=== PATIENT | female | born 1975 | race Hispanic/Latino ===

== ENCOUNTER 2019-02-08 01:44 | Inpatient (IN) | payer OTHER ==
[2019-02-08] VITALS (20 sets, daily range): BP systolic 94–217; BP diastolic 50–99
[~2019-02-08] VITALS: Ht 157.5 cm; Wt 65.8 kg
[2019-02-08] MEDS ORDERED: POTASSIUM CHLORIDE 10MEQ/100ML 100 ML IV PRN (02:00)
[2019-02-08] MEDS ORDERED: POTASSIUM CHLORIDE 10% ELIXIR 20 MEQ/15 ML UDCUP PO PRN (02:00)
[2019-02-08] MEDS ORDERED: GLUCAGON 1MG KIT 1 MG ML IM PRN ×2 (02:00→19:00)
[2019-02-08] MEDS ORDERED: CEFAZOLIN SODIUM 1 GM VIAL IVP PRN (02:00)
[2019-02-08] MEDS ORDERED: LIDOCAINE HCL-MPF 1% 2ML VIAL IV PRN ×2 (02:00)
[2019-02-08] MEDS ORDERED: POTASSIUM CHLORIDE 20MEQ/100ML 100 ML IV PRN (02:00)
[2019-02-08] MEDS ORDERED: ONDANSETRON HCL 4 MG/2 ML VIAL IVP PRN (02:00)
[2019-02-08] MEDS ORDERED: TRAMADOL HCL 50 MG TABLET PO PRN ×2 (02:00)
[2019-02-08] MEDS ORDERED: DEXTROSE 50%-WATER 50 ML DISP.SYRIN IV PRN ×2 (02:00→19:00)
--- NOTE | 2019-02-08 02:00 | NUR ---
Received patient from [facility] via EMS. Admitted to room 215. Denies pain, sob. On room Air. RSR per EKG. Oriented to room, call light, bed controls, etc. Initial assessment completed. Informed HS KEERTHI Fox of admission. Spoke with Dr Cohen's nurse Lela Sexton RN. Informed patient received Lovenox last night at 2057. State OR time has changed from 0800 to 1200. Orders to be placed.
[2019-02-08 02:51] LABS: HEMATOCRIT 39.8 % (36-48); MEAN CORPUSCULAR HEMOGLOBIN 29.9 pg (27.0-33.0); MEAN CORPUSCULAR HGB CONC 34.9 g/dL (32.0-36.0); MEAN CORPUSCULAR VOLUME 85.6 fL (79-99); PLATELET COUNT (AUTO) 270 K/uL (130-400); RED BLOOD CELL COUNT(AUTO) 4.65 MIL/uL (4.00-5.50); RED CELL DISTRIBUTION WIDTH 12.5 % (11.0-15.5); WHITE BLOOD COUNT (AUTO) 5.5 K/uL (4.8-10.8)
[2019-02-08 03:00] LABS: HEMOGLOBIN A1C 11.3 % (4.0-6.0)
[2019-02-08 03:05] LABS: ALBUMIN 3.6 g/dL (3.5-5.0); BILIRUBIN,TOTAL 0.4 mg/dL (0.2-1.0); CREATININE 0.6 mg/dL (0.5-1.5); POTASSIUM 3.9 mmol/L (3.5-5.1); TOTAL PROTEIN, SERUM 7.8 g/dL (6.0-8.3)
[2019-02-08 03:19] LABS: B-TYPE NATRIURETIC PEPTIDE 147 pg/mL (0-100)
[2019-02-08 03:27] LABS: INR 0.96 (0.85-1.15); PARTIAL THROMBOPLASTIN TIME 30.9 SEC (26.3-35.5); PROTHROMBIN TIME 10.1 SEC (9.6-11.6)
[2019-02-08] MEDS: INSULIN HUMULIN R 100 UNIT/ML 3ML SQ SCH ×3 (08:08→16:25)
[2019-02-08] MEDS ORDERED: METOPROLOL TARTRATE 25 MG TAB PO SCH (09:00)
[2019-02-08] MEDS ORDERED: AMINOCAPROIC ACID 15,000 MG in SODIUM CHLORIDE 0.9% 500ML 500 ML IV PRN (09:30)
[2019-02-08] MEDS ORDERED: EPINEPHRINE 8 MG in SODIUM CHLORIDE 0.9% 250 ML IV PRN (09:30)
[2019-02-08] MEDS ORDERED: NOREPINEPHRINE BITARTRATE 8 MG in SODIUM CHLORIDE 0.9% 250 ML IV PRN (09:30)
[2019-02-08] MEDS ORDERED: NITROGLYCERIN 50 MG/D5% WATER 1 BOT ONE (11:02)
[2019-02-08] MEDS ORDERED: HEPARIN SODIUM 1000UNIT/ML 10ML VIAL IV ONE (14:07)
[2019-02-08] MEDS ORDERED: AMINOCAPROIC ACID 250 MG/ML 20 ML VIAL IV ONE ×2 (14:07→16:47)
[2019-02-08] MEDS ORDERED: SODIUM BICARB 8.4% 50ML SYRINGE IVP ONE (14:07)
[2019-02-08] MEDS ORDERED: PHENYLEPHRINE HCL 10 MG/ML 1ML VIAL IV ONE (14:07)
[2019-02-08] MEDS ORDERED: ALBUMIN (HUMAN) 25% 50 ML IV ONE (14:07)
[2019-02-08] MEDS ORDERED: MANNITOL 25% 50ML VIAL IV ONE (14:07)
[2019-02-08] MEDS ORDERED: KETAMINE HCL 50MG/ML 10ML VIAL IJ ONE (16:46)
[2019-02-08] MEDS ORDERED: ESMOLOL HCL 10 MG/ML 10 ML VIAL ONE ×2 (16:47→20:57)
[2019-02-08] MEDS ORDERED: EPINEPHRINE 1 MG/ML AMPULE ONE (16:47)
[2019-02-08] MEDS ORDERED: LIDOCAINE PF 2% 5ML ABBOJECT ONE (16:47)
[2019-02-08] MEDS ORDERED: HEPARIN SODIUM 1000UNIT/ML 10ML VIAL ONE ×2 (16:47→17:32)
[2019-02-08] MEDS ORDERED: PROTAMINE SULFATE 10 MG/ML 25ML VIAL IV ONE (16:47)
[2019-02-08] MEDS ORDERED: NOREPINEPHRINE BITARTRATE 1 MG/1 ML ML IV ONE (16:47)
[2019-02-08] MEDS ORDERED: PROPOFOL 10 MG/ML 20ML VIAL IV ONE ×2 (16:48→20:15)
[2019-02-08] MEDS ORDERED: MIDAZOLAM HCL 1 MG/ML 2ML VIAL ONE (16:48)
[2019-02-08] MEDS ORDERED: ROCURONIUM 10MG/1ML SYR 10 MG/ML ML ONE ×2 (16:48→18:58)
[2019-02-08] MEDS ORDERED: FENTANYL CITRATE PF 50 MCG/1 ML 20ML VIAL IJ ONE (16:48)
[2019-02-08 17:32] LABS: ABG BASE EXCESS -3.5 mmol/L (-2.0-3.0); ABG HCO3 20.2 mmol/L (21.0-28.0); ABG OXYGEN SATURATION 98.3 % (95.0-99.0); ABG PCO2 32 mmHg (32-45)
[2019-02-08] MEDS ORDERED: PAPAVERINE HCL 30 MG/ML 2ML VIAL ONE (17:32)
[2019-02-08] MEDS ORDERED: OCTYL 2-CYANOACRYLATE 1 EACH TP ONE (17:32)
[2019-02-08] MEDS ORDERED: NEOMY SULF/POLYMYXIN B SULFATE 1 ML AMPUL IR ONE (17:38)
[2019-02-08] MEDS ORDERED: SODIUM BICARB 8.4% 50ML SYRINGE ONE ×3 (18:08→18:41)
[2019-02-08] MEDS ORDERED: SODIUM BICARB [NEONATAL] 4.2% 10ML SYG ONE (18:09)
[2019-02-08] MEDS ORDERED: AMIODARONE HCL 50 MG/ML 3 ML VIAL ONE ×2 (18:25→19:06)
[2019-02-08 18:29] LABS: ABG BASE EXCESS -3.8 mmol/L (-2.0-3.0); ABG HCO3 20.2 mmol/L (21.0-28.0); ABG OXYGEN SATURATION 98.6 % (95.0-99.0); ABG PCO2 34 mmHg (32-45)
[2019-02-08] MEDS ORDERED: POTASSIUM CHLORIDE 20MEQ/100ML 300 ML IV ONE (18:37)
[2019-02-08] MEDS ORDERED: SODIUM CHLORIDE 0.9% 500ML 500 ML IV SCH (18:49)
[2019-02-08] MEDS ORDERED: SODIUM CHLORIDE 0.9% 250 ML IV PRN (19:00)
[2019-02-08] MEDS ORDERED: SODIUM CHLORIDE 0.9% 1000ML 1,000 ML IV SCH (19:00)
[2019-02-08] MEDS ORDERED: SODIUM CHLORIDE 0.9% 10 ML VIAL IVP PRN (19:00)
[2019-02-08] MEDS ORDERED: NOREPINEPHRINE 4MG/NS 250ML 250 ML IV PRN (19:00)
[2019-02-08] MEDS ORDERED: ACETAMINOPHEN 650 MG SUPPOSITORY RC PRN (19:00)
[2019-02-08] MEDS ORDERED: PROPOFOL 1000 MG/100 ML 100 ML IV PRN (19:00)
[2019-02-08] MEDS ORDERED: ALBUMIN (HUMAN) 5% 250 ML IV PRN (19:00)
[2019-02-08] MEDS ORDERED: AMINOCAPROIC ACID 15,000 MG in SODIUM CHLORIDE 0.9% 250 ML IV SCH (19:00)
[2019-02-08] MEDS ORDERED: NITROGLYCERIN 50 MG/D5% WATER 250 BOT IV SCH (19:00)
[2019-02-08] MEDS ORDERED: ACETAMINOPHEN 325 MG TAB PO PRN (19:00)
[2019-02-08] MEDS ORDERED: EPINEPHRINE 2 MG in DEXTROSE 5%-WATER 250 ML IV PRN (19:00)
[2019-02-08] MEDS ORDERED: MORPHINE SULFATE 2 MG/ML 1ML SYG IV PRN (19:00)
[2019-02-08] MEDS ORDERED: METOPROLOL TARTRATE 1 MG/ML 5ML VIAL IV ONE (19:09)
[2019-02-08] MEDS ORDERED: AMIODARONE HCL 900 MG in DEXTROSE 5%-WATER 500 ML IV PRN (19:15)
[2019-02-08 19:20] LABS: ABG HCO3 25.5 mmol/L (21.0-28.0); ABG OXYGEN SATURATION 97.9 % (95.0-99.0); ABG PCO2 35 mmHg (32-45)
[2019-02-08 19:49] LABS: ABG BASE EXCESS -0.6 mmol/L (-2.0-3.0); ABG HCO3 22.7 mmol/L (21.0-28.0); ABG OXYGEN SATURATION 98.1 % (95.0-99.0); ABG PCO2 32 mmHg (32-45)
[2019-02-08] MEDS ORDERED: FENTANYL CITRATE PF 50 MCG/1 ML 5ML AMP IV ONE (20:14)
[2019-02-08] MEDS ORDERED: MAGNESIUM SULFATE 1 GM/2 ML VIAL ONE (20:15)
[2019-02-08 20:22] LABS: ABG HCO3 24.5 mmol/L (21.0-28.0); ABG OXYGEN SATURATION 98.3 % (95.0-99.0); ABG PCO2 35 mmHg (32-45)
[2019-02-08] MEDS ORDERED: INSULIN HUMULIN R 100 UNIT/ML 3ML ONE (20:24)
[2019-02-08] MEDS ORDERED: CEFAZOLIN SODIUM 1 GM VIAL ONE (20:50)
[2019-02-08 21:33] LABS: ABG BASE EXCESS -1.7 mmol/L (-2.0-3.0); ABG HCO3 22.9 mmol/L (21.0-28.0); ABG OXYGEN SATURATION 96.8 % (95.0-99.0); ABG PCO2 38 mmHg (32-45)
[2019-02-08 21:38] LABS: HEMATOCRIT 33.2 % (36-48); MEAN CORPUSCULAR HEMOGLOBIN 29.3 pg (27.0-33.0); PLATELET COUNT (AUTO) 224 K/uL (130-400); RED BLOOD CELL COUNT(AUTO) 3.86 MIL/uL (4.00-5.50); RED CELL DISTRIBUTION WIDTH 12.5 % (11.0-15.5); WHITE BLOOD COUNT (AUTO) 16.2 K/uL (4.8-10.8)
[2019-02-08] MEDS: MORPHINE SULFATE 4 MG/1ML SYG IV PRN ×2 (21:39→23:44)
[2019-02-08] MEDS: FAMOTIDINE/PF 20 MG/2 ML VIAL IV SCH (21:39)
[2019-02-08] MEDS: INSULIN REGULAR, HUMAN 3ML 100 UNIT in SODIUM CHLORIDE 0.9% 99 ML IV SCH ×2 (21:42)
[2019-02-08 21:51] LABS: CREATININE 0.7 mg/dL (0.5-1.5); INR 1.11 (0.85-1.15); PARTIAL THROMBOPLASTIN TIME 24.7 SEC (26.3-35.5); PHOSPHORUS 3.5 mg/dL (2.5-4.9); POTASSIUM 3.3 mmol/L (3.5-5.1); PROTHROMBIN TIME 11.6 SEC (9.6-11.6)
[2019-02-08] MEDS: POTASSIUM CHLORIDE 20MEQ/100ML 100 ML IV PRN ×2 (21:59→22:31)
[2019-02-08] MEDS: SODIUM BICARB 50MEQ 50ML VIAL IV PRN ×2 (21:59→22:05)
[2019-02-08 22:48] LABS: ABG OXYGEN SATURATION 72.4 % (95.0-99.0); BASE EXCESS,VENOUS BLOOD GAS 4.6 (-2.0-3.0); HCO3,VENOUS BLOOD GAS 29.5 (21.0-28.0); PCO2,VENOUS BLOOD GAS 44 (32-45); PH,VENOUS BLOOD GAS 7.441 (7.350-7.450)
[2019-02-08 22:53] LABS: ABG BASE EXCESS 4.6 mmol/L (-2.0-3.0); ABG HCO3 28.4 mmol/L (21.0-28.0); ABG OXYGEN SATURATION 97.6 % (95.0-99.0); ABG PCO2 39 mmHg (32-45)
[2019-02-08] MEDS ORDERED: ALBUMIN (HUMAN) 5% 250 ML IV ONE (23:10)
[2019-02-08] MEDS ORDERED: CALCIUM GLUCONATE 1 GM/10 ML VIAL IV ONE (23:24)
[2019-02-08] MEDS: CALCIUM GLUCONATE 1 GM in SODIUM CHLORIDE 0.9% 50 ML IV PRN (23:37)
[2019-02-09] VITALS (54 sets, daily range): BP systolic 86–134; BP diastolic 48–76
[2019-02-09] MEDS ORDERED: CEFAZOLIN SODIUM 1 GM VIAL IV SCH
[2019-02-09 00:24] LABS: ABG BASE EXCESS 1.6 mmol/L (-2.0-3.0); ABG HCO3 26.5 mmol/L (21.0-28.0); ABG OXYGEN SATURATION 96.7 % (95.0-99.0); ABG PCO2 43 mmHg (32-45)
[2019-02-09] MEDS: POTASSIUM CHLORIDE 20MEQ/100ML 100 ML IV PRN ×3 (00:25→05:15)
[2019-02-09] MEDS: ONDANSETRON HCL 4 MG/2 ML VIAL IV PRN ×3 (00:54→12:46)
[2019-02-09 02:13] LABS: ABG BASE EXCESS 0.5 mmol/L (-2.0-3.0); ABG HCO3 24.9 mmol/L (21.0-28.0); ABG OXYGEN SATURATION 97.5 % (95.0-99.0); ABG PCO2 39 mmHg (32-45)
[2019-02-09] MEDS ORDERED: CALCIUM GLUCONATE 1 GM/10 ML VIAL IV ONE (02:13)
[2019-02-09] MEDS: CALCIUM GLUCONATE 1 GM in SODIUM CHLORIDE 0.9% 50 ML IV PRN (02:15)
--- NOTE | 2019-02-09 02:20 | NUR ---
EXTUBATION PT TOLERATED WEANING WELL ABG WITHIN PARAMETERS. PT WITH [employer] HEAD AND ABLE TO LIFT HEAD AND HOLD. NIF -27, VC 1425. PT EXTUBATED AND PLACED ON 40% CAFM. PT ENCOURAGED TO TAKE SLOW DEEP BREATHS. WILL CONTINUE TO MONITOR.
[2019-02-09 03:33] LABS: ABG BASE EXCESS -0.2 mmol/L (-2.0-3.0); ABG HCO3 24.7 mmol/L (21.0-28.0); ABG OXYGEN SATURATION 97.6 % (95.0-99.0); ABG PCO2 41 mmHg (32-45)
[2019-02-09 04:28] LABS: HEMATOCRIT 29.6 % (36-48); MEAN CORPUSCULAR HEMOGLOBIN 28.9 pg (27.0-33.0); MEAN CORPUSCULAR HGB CONC 33.4 g/dL (32.0-36.0); MEAN CORPUSCULAR VOLUME 86.5 fL (79-99); PLATELET COUNT (AUTO) 199 K/uL (130-400); RED BLOOD CELL COUNT(AUTO) 3.42 MIL/uL (4.00-5.50); RED CELL DISTRIBUTION WIDTH 12.8 % (11.0-15.5); WHITE BLOOD COUNT (AUTO) 9.5 K/uL (4.8-10.8)
[2019-02-09] MEDS: CEFAZOLIN SODIUM 1 GM VIAL IV SCH ×3 (04:34→20:01)
[2019-02-09 04:44] LABS: INR 1.07 (0.85-1.15); PROTHROMBIN TIME 11.2 SEC (9.6-11.6)
[2019-02-09 04:55] LABS: CREATININE 0.7 mg/dL (0.5-1.5); MAGNESIUM 1.4 mg/dL (1.80-2.40); PHOSPHORUS 1.3 mg/dL (2.5-4.9); POTASSIUM 3.9 mmol/L (3.5-5.1)
[2019-02-09] MEDS ORDERED: NOREPINEPHRINE BITARTRATE 1 MG/1 ML ML IV ONE (04:59)
[2019-02-09] MEDS ORDERED: PHARMACY COMMUNICATION MISC SCH ×2 (05:15→15:30)
[2019-02-09] MEDS: TRAMADOL HCL 50 MG TABLET PO PRN ×3 (05:56→22:14)
[2019-02-09] MEDS: MAGNESIUM 2GM PREMIX 50ML 50 ML IV PRN (06:12)
[2019-02-09] MEDS: POTASSIUM PHOS 15 mMOL+NS250ML 250 ML IV PRN (06:30)
--- NOTE | 2019-02-09 07:10 | NUR ---
TRANSFER PT TRANSFERRED TO ROOM 215 AT THIS TIME AND REPORT GIVEN TO MELISSA HARGROVE
--- NOTE | 2019-02-09 07:35 | NUR ---
AM NOTE Awake, alert, and oriented x3. Denies pain. Now on nasal cannula at 3lit/min. Dr. Burgess at bedside, update given. New orders received and will carry out. Encouraged use of incentive spirometer every hour x10 while awake, maximum inspiratory volume of 500cc noted. Sinus rhythm in 90s, no ectopy.
[2019-02-09] MEDS: FAMOTIDINE/PF 20 MG/2 ML VIAL IV SCH ×2 (08:49→19:45)
[2019-02-09] MEDS: ASPIRIN 325 MG TABLET PO SCH (08:50)
--- NOTE | 2019-02-09 10:35 | NUR ---
DC Swanz catheter discontinued, tolerated well.
--- NOTE | 2019-02-09 14:27 | NUR ---
CONSULT CAROLINE Mauricio [facility] made aware of consult.
[2019-02-09] MEDS: INSULIN REGULAR, HUMAN 3ML 100 UNIT in SODIUM CHLORIDE 0.9% 99 ML IV SCH ×2 (14:38)
--- NOTE | 2019-02-09 16:09 | NUR ---
DC PLAN VISITED WITH PATIENT. PATIENT LIVES WITH SPOUSE. INDEPENDENT ABLE TO PERFORM ADL'S. PATIENT HAS NO SERVICES OR DME'S. FEELS SAFE TO RETURN HOME. Addendum: 02/09/19 at 1611 by REMY MONTELONGO RN CM Amended: Links added.
[2019-02-09] MEDS: ATORVASTATIN CALCIUM 40 MG TABLET PO SCH (19:46)
[2019-02-09] MEDS: AMIODARONE HCL 200 MG TABLET PO SCH (19:47)
[2019-02-09] MEDS: ACETAMINOPHEN 325 MG TAB PO PRN (19:48)
[2019-02-10] VITALS (11 sets, daily range): BP systolic 98–140; BP diastolic 61–80
[2019-02-10 04:36] LABS: HEMATOCRIT 26.3 % (36-48); MEAN CORPUSCULAR HEMOGLOBIN 29.1 pg (27.0-33.0); MEAN CORPUSCULAR HGB CONC 32.3 g/dL (32.0-36.0); MEAN CORPUSCULAR VOLUME 90.1 fL (79-99); PLATELET COUNT (AUTO) 159 K/uL (130-400); RED BLOOD CELL COUNT(AUTO) 2.92 MIL/uL (4.00-5.50); RED CELL DISTRIBUTION WIDTH 13.2 % (11.0-15.5); WHITE BLOOD COUNT (AUTO) 10.8 K/uL (4.8-10.8)
[2019-02-10 04:50] LABS: POTASSIUM 3.7 mmol/L (3.5-5.1)
[2019-02-10 04:51] LABS: CREATININE 0.4 mg/dL (0.5-1.5); MAGNESIUM 1.9 mg/dL (1.80-2.40); PHOSPHORUS 2.4 mg/dL (2.5-4.9)
[2019-02-10] MEDS: POTASSIUM CHLORIDE 20MEQ/100ML 100 ML IV PRN (04:59)
[2019-02-10] MEDS: TRAMADOL HCL 50 MG TABLET PO PRN ×3 (05:03→20:54)
[2019-02-10] MEDS ORDERED: PHARMACY COMMUNICATION MISC SCH (05:15)
[2019-02-10] MEDS: MAGNESIUM 2GM PREMIX 50ML 50 ML IV PRN (06:19)
[2019-02-10] MEDS: INSULIN HUMULIN R 100 UNIT/ML 3ML SQ SCH ×4 (06:38→20:59)
[2019-02-10] MEDS: POTASSIUM PHOS 15 mMOL+NS250ML 250 ML IV PRN (07:27)
[2019-02-10] MEDS: AMIODARONE HCL 200 MG TABLET PO SCH ×2 (07:28→20:53)
[2019-02-10] MEDS: ASPIRIN 325 MG TABLET PO SCH (07:28)
--- NOTE | 2019-02-10 07:49 | NUR ---
DR. ELSI CALZADA IN TO SEE PT. PLAN OF CARE DISCUSSED. NEW ORDERS RECEIVED AND NOTED.
[2019-02-10] MEDS: FAMOTIDINE 20MG TAB 20 MG TAB PO SCH ×2 (09:10→20:53)
[2019-02-10] MEDS: FUROSEMIDE 20 MG TABLET PO SCH ×2 (09:11→16:04)
[2019-02-10] MEDS: METOPROLOL TARTRATE 25 MG TAB PO SCH ×2 (09:11→20:53)
[2019-02-10] MEDS: ENOXAPARIN SODIUM 30 MG/0.3 ML SQ SCH (09:12)
--- NOTE | 2019-02-10 16:30 | NUR ---
TRANSFER FROM ICU RECEIVED PT FROM Zayra LITTLEJOHN RN, UP IN CHAIR, A&OX3,CALM COOPERATIVE AND DOES NOT APPEAR TO BE IN ANY DISTRESS NOR ANY NEURO DEFICITS PRESENT. PT DENIES PAIN, SOB, NAUSEA. PT IS DUE TO AVOID BY 2200. CALL LIGHT WITHIN REACH, FAMILY AT BEDSIDE.
[2019-02-10] MEDS: ATORVASTATIN CALCIUM 40 MG TABLET PO SCH (20:52)
[2019-02-10] MEDS: ACETAMINOPHEN 325 MG TAB PO PRN (23:28)
[2019-02-11] VITALS (7 sets, daily range): BP systolic 106–131; BP diastolic 58–71
[2019-02-11 05:06] LABS: HEMATOCRIT 26.5 % (36-48); MEAN CORPUSCULAR HEMOGLOBIN 29.1 pg (27.0-33.0); MEAN CORPUSCULAR HGB CONC 32.8 g/dL (32.0-36.0); MEAN CORPUSCULAR VOLUME 88.6 fL (79-99); PLATELET COUNT (AUTO) 190 K/uL (130-400); RED BLOOD CELL COUNT(AUTO) 2.99 MIL/uL (4.00-5.50); RED CELL DISTRIBUTION WIDTH 12.8 % (11.0-15.5); WHITE BLOOD COUNT (AUTO) 9.7 K/uL (4.8-10.8)
[2019-02-11 05:23] LABS: CREATININE 0.5 mg/dL (0.5-1.5); POTASSIUM 3.8 mmol/L (3.5-5.1)
[2019-02-11] MEDS: INSULIN HUMULIN R 100 UNIT/ML 3ML SQ SCH ×4 (06:08→22:43)
[2019-02-11] MEDS: METOPROLOL TARTRATE 25 MG TAB PO SCH ×2 (08:39→22:06)
[2019-02-11] MEDS: ENOXAPARIN SODIUM 30 MG/0.3 ML SQ SCH (08:39)
[2019-02-11] MEDS: FAMOTIDINE 20MG TAB 20 MG TAB PO SCH ×2 (08:39→22:06)
[2019-02-11] MEDS: FUROSEMIDE 20 MG TABLET PO SCH ×2 (08:39→16:55)
[2019-02-11] MEDS: AMIODARONE HCL 200 MG TABLET PO SCH ×2 (08:39→22:06)
[2019-02-11] MEDS: ASPIRIN 325 MG TABLET PO SCH (08:40)
[2019-02-11] MEDS: TRAMADOL HCL 50 MG TABLET PO PRN ×2 (13:03→19:20)
[2019-02-11] MEDS: ONDANSETRON HCL 4 MG/2 ML VIAL IV PRN (14:37)
[2019-02-11] MEDS: DOCUSATE SODIUM 100 MG CAP PO SCH (22:06)
[2019-02-11] MEDS: ATORVASTATIN CALCIUM 40 MG TABLET PO SCH (22:06)
[2019-02-12 04:00] VITALS: BP 122/73
--- NOTE | 2019-02-12 05:16 | NUR ---
PATIENT REFUSED OFFER OF BATHS
[2019-02-12 05:22] LABS: BASOPHILS % (AUTO) 0.3 % (0.0-5.0); EOSINOPHILS % (AUTO) 1.3 % (0.0-8.0); HEMATOCRIT 28.6 % (36-48); LYMPHOCYTES % (AUTO) 32.3 % (21.0-51.0); MEAN CORPUSCULAR HEMOGLOBIN 28.4 pg (27.0-33.0); MEAN CORPUSCULAR HGB CONC 32.2 g/dL (32.0-36.0); MEAN CORPUSCULAR VOLUME 88.3 fL (79-99); MONOCYTES % (AUTO) 7.5 % (3.0-13.0); PLATELET COUNT (AUTO) 257 K/uL (130-400); RED BLOOD CELL COUNT(AUTO) 3.24 MIL/uL (4.00-5.50); RED CELL DISTRIBUTION WIDTH 12.7 % (11.0-15.5); WHITE BLOOD COUNT (AUTO) 9.3 K/uL (4.8-10.8)
[2019-02-12 05:44] LABS: CREATININE 0.5 mg/dL (0.5-1.5); POTASSIUM 3.6 mmol/L (3.5-5.1)
[2019-02-12] MEDS: INSULIN HUMULIN R 100 UNIT/ML 3ML SQ SCH ×3 (06:11→16:45)
[2019-02-12] MEDS: POTASSIUM CHLORIDE 20 MEQ ERTAB PO PRN ×2 (06:47→12:51)
[2019-02-12 07:30] VITALS: BP 127/66
[2019-02-12] MEDS: METOPROLOL TARTRATE 25 MG TAB PO SCH (09:32)
[2019-02-12] MEDS: FAMOTIDINE 20MG TAB 20 MG TAB PO SCH (09:32)
[2019-02-12] MEDS: AMIODARONE HCL 200 MG TABLET PO SCH (09:32)
[2019-02-12] MEDS: ENOXAPARIN SODIUM 30 MG/0.3 ML SQ SCH (09:32)
[2019-02-12] MEDS: ASPIRIN 325 MG TABLET PO SCH (09:32)
[2019-02-12] MEDS: DOCUSATE SODIUM 100 MG CAP PO SCH (09:32)
[2019-02-12] MEDS: FUROSEMIDE 20 MG TABLET PO SCH ×2 (09:32→16:42)
[2019-02-12 11:20] VITALS: BP 131/71
[2019-02-12 15:30] VITALS: BP 118/60
[2019-02-12] MEDS: TRAMADOL HCL 50 MG TABLET PO PRN (17:52)
== END 2019-02-12 19:05 | disposition home or self-care (01) | DRG 236 ==
LOC: 2CH 01:44 → 2CV 13:31 → 2CH 02-09 06:12 → 2DH 02-10 16:24
PROVIDERS: ADMIT Internal Medicine Pulmonary Disease; ATTEND Internal Medicine Pulmonary Disease
PROC: 5A1221Z Performance of Cardiac Output, Continuous (ICD-10-PCS; 2019-02-08)
PROC: 02100Z9 Bypass Coronary Artery, One Artery from Left Internal Mammary, Open Approach (ICD-10-PCS; principal; 2019-02-08 16:47)
PROC: 021209W Bypass Coronary Artery, Three Arteries from Aorta with Autologous Venous Tissue, Open Approach (ICD-10-PCS; 2019-02-08 16:47)
PROC: 06BQ4ZZ Excision of Left Saphenous Vein, Percutaneous Endoscopic Approach (ICD-10-PCS; 2019-02-08 16:47)
DX: I21.4 Non-ST elevation (NSTEMI) myocardial infarction (principal); J90 Pleural effusion, not elsewhere classified; I25.10 Atherosclerotic heart disease of native coronary artery without angina pectoris; I10 Essential (primary) hypertension; E78.5 Hyperlipidemia, unspecified; E11.9 Type 2 diabetes mellitus without complications; E66.9 Obesity, unspecified; E78.00 Pure hypercholesterolemia, unspecified; Z79.82 Long term (current) use of aspirin; Z91.19 Patient's noncompliance with other medical treatment and regimen; Z68.26 Body mass index [BMI] 26.0-26.9, adult; Z79.899 Other long term (current) drug therapy; Z82.49 Family history of ischemic heart disease and other diseases of the circulatory system; Z91.14 Patient's other noncompliance with medication regimen
CPT/HCPCS: 36415; 36600; 71045; 80048; 80053; 80061; 82330; 82435; 82803; 82947; 82948; 83036; 83605; 83735; 83880; 84100; 84132; 84295; 85018; 85025; 85027; 85610; 85730; 86850; 86900; 86901; 86922; 93005; 93880; 94002; 94003; 94010; 94150; 97039; A4357; A7048; G0378; J0171; J0282; J0610; J0690; J1644; J1650; J1815; J2001; J2150; J2250; J2270; J2370; J2405; J2440; J2704; J2720; J3010; J3475; J3480; J3490; J7030; J7040; J7120; P9045; P9047